=== PATIENT | male | born 1955 | race Caucasian/White ===

== ENCOUNTER 2016-08-10 18:33 | Inpatient (IN) | payer BC ==
[2016-08-10] MEDS ORDERED: NITROGLYCERIN SL TABS 0.4 MG TAB SUBLINGUAL STA (19:07)
--- NOTE | 2016-08-10 19:09 | ED ---
General Adult HPI - General Chief complaint: Chest Pain Stated complaint: Chest pain Time Seen by Provider: 08/10/16 19:00 Source: patient Mode of arrival: wheelchair Limitations: no limitations - History of Present Illness Initial comments: 60-year-old male onset of chest heaviness like knot in his chest beginning at 2 PM no similar episodes in the past had some nausea sweats refer started was more severe and went down both arms. No history of hypertension diabetes seizures asthma. To call for an aspirin at home today. Father had heart disease in his 70s. Both uncles have heart disease. He's had no blood in the stool black stools no abdominal pain no pain with eating - Related Data Home Medications Medication Instructions Recorded Confirmed Aspirin 325 mg PO Q6H PRN 08/10/16 08/10/16 Cyclobenzaprine [Flexeril] 10 mg PO HS 08/10/16 08/10/16 Allergies Allergy/AdvReac Type Severity Reaction Status Date / Time No Known Allergies Allergy Verified 08/10/16 19:28 Review of Systems ROS Statement: Those systems with pertinent positive or pertinent negative responses have been documented in the HPI. ROS Other: All systems not noted in ROS Statement are negative. Constitutional: Denies: fever, chills Eyes: Denies: eye discharge Respiratory: Denies: cough, dyspnea Cardiovascular: Reports: chest pain Gastrointestinal: Denies: abdominal pain, nausea, vomiting, diarrhea Genitourinary: Denies: frequency Skin: Denies: rash Neurological: Denies: headache Psychiatric: Denies: anxiety, depression Hematological/Lymphatic: Denies: easy bleeding, easy bruising Past Medical History Past Medical History: Osteoarthritis (OA) History of Any Multi-Drug Resistant Organisms: None Reported Past Surgical History: Back Surgery, Orthopedic Surgery Past Psychological History: No Psychological Hx Reported Smoking Status: Former smoker Past Alcohol Use History: Occasional Past Drug Use History: None Reported General Exam Limitations: no limitations General appearance: alert, in no apparent distress Head exam: Present: atraumatic Eye exam: Present: normal appearance ENT exam: Present: normal oropharynx, mucous membranes moist, TM's normal bilaterally Respiratory exam: Present: normal lung sounds bilaterally Cardiovascular Exam: Present: regular rate, normal heart sounds GI/Abdominal exam: Present: soft. Absent: tenderness, guarding, rebound Neurological exam: Present: alert, CN II-XII intact Psychiatric exam: Present: normal affect, normal mood Skin exam: Present: warm, dry Course Vital Signs 08/10/16 08/10/16 08/10/16 18:41 19:21 20:38 Temperature 97.8 F Pulse Rate 108 H 108 H 90 Respiratory 20 16 18 Rate Blood Pressure 157/87 150/90 164/107 O2 Sat by Pulse 98 98 98 Oximetry 08/10/16 08/10/16 20:45 20:51 Temperature Pulse Rate 75 63 Respiratory 16 16 Rate Blood Pressure 145/98 163/94 O2 Sat by Pulse 96 96 Oximetry Medical Decision Making - Medical Decision Making A she was evaluated by , will undergo heart catheterization will go directly to the catheterization lab and then be admitted. - Lab Data Result diagrams: 08/10/16 19:15 08/10/16 19:15 Lab Results 08/10/16 08/10/16 08/10/16 Range/Units 19:15 19:15 19:15 WBC 10.7 H (3.8-10.6) k/uL RBC 5.45 (4.30-5.90) m/uL Hgb 16.1 (13.0-17.5) gm/dL Hct 50.0 (39.0-53.0) % MCV 91.9 (80.0-100.0) fL MCH 29.5 (25.0-35.0) pg MCHC 32.1 (31.0-37.0) g/dL RDW 13.1 (11.5-15.5) % Plt Count 305 (150-450) k/uL Neutrophils % 78 % Lymphocytes % 15 % Monocytes % 5 % Eosinophils % 1 % Basophils % 0 % Neutrophils # 8.4 H (1.3-7.7) k/uL Lymphocytes # 1.6 (1.0-4.8) k/uL Monocytes # 0.5 (0-1.0) k/uL Eosinophils # 0.1 (0-0.7) k/uL Basophils # 0.0 (0-0.2) k/uL PT (9.0-12.0) sec INR (<1.1) APTT (22.0-30.0) sec Sodium 143 (137-145) mmol/L Potassium 4.1 (3.5-5.1) mmol/L Chloride 106 (98-107) mmol/L Carbon Dioxide 25 (22-30) mmol/L Anion Gap 12 mmol/L BUN 22 H (9-20) mg/dL Creatinine 1.02 (0.66-1.25) mg/dL Est GFR (MDRD) Af Amer >60 (>60 ml/min/1.73 sqM) Est GFR (MDRD) Non-Af >60 (>60 ml/min/1.73 sqM) Glucose 112 H (74-99) mg/dL Calcium 10.0 (8.4-10.2) mg/dL Magnesium 2.1 (1.6-2.3) mg/dL Total Bilirubin 0.5 (0.2-1.3) mg/dL AST 53 (17-59) U/L ALT 30 (21-72) U/L Alkaline Phosphatase 100 (38-126) U/L Total Creatine Kinase 272 H (55-170) U/L CK-MB (CK-2) 26.6 H* (0.0-2.4) ng/mL CK-MB (CK-2) Rel Index 9.8 Troponin I 4.120 H* (0.000-0.034) ng/mL Total Protein 7.2 (6.3-8.2) g/dL Albumin 4.2 (3.5-5.0) g/dL 08/10/16 Range/Units 19:15 WBC (3.8-10.6) k/uL RBC (4.30-5.90) m/uL Hgb (13.0-17.5) gm/dL Hct (39.0-53.0) % MCV (80.0-100.0) fL MCH (25.0-35.0) pg MCHC (31.0-37.0) g/dL RDW (11.5-15.5) % Plt Count (150-450) k/uL Neutrophils % % Lymphocytes % % Monocytes % % Eosinophils % % Basophils % % Neutrophils # (1.3-7.7) k/uL Lymphocytes # (1.0-4.8) k/uL Monocytes # (0-1.0) k/uL Eosinophils # (0-0.7) k/uL Basophils # (0-0.2) k/uL PT 11.1 (9.0-12.0) sec INR 1.1 (<1.1) APTT 25.7 (22.0-30.0) sec Sodium (137-145) mmol/L Potassium (3.5-5.1) mmol/L Chloride (98-107) mmol/L Carbon Dioxide (22-30) mmol/L Anion Gap mmol/L BUN (9-20) mg/dL Creatinine (0.66-1.25) mg/dL Est GFR (MDRD) Af Amer (>60 ml/min/1.73 sqM) Est GFR (MDRD) Non-Af (>60 ml/min/1.73 sqM) Glucose (74-99) mg/dL Calcium (8.4-10.2) mg/dL Magnesium (1.6-2.3) mg/dL Total Bilirubin (0.2-1.3) mg/dL AST (17-59) U/L ALT (21-72) U/L Alkaline Phosphatase (38-126) U/L Total Creatine Kinase (55-170) U/L CK-MB (CK-2) (0.0-2.4) ng/mL CK-MB (CK-2) Rel Index Troponin I (0.000-0.034) ng/mL Total Protein (6.3-8.2) g/dL Albumin (3.5-5.0) g/dL - EKG Data -: EKG Interpreted by Me 08/10/16 19:09 ECG 08/10/2016 1856 ventricular rate 92 bpm, [place] interval 162 ms, QRS duration 84 ms, QT interval 332 ms normal sinus rhythm left axis deviation inferior posterior infarct age indeterminate Disposition Clinical Impression: Acute non-ST segment elevation myocardial infarction (STEMI) following previous myocardial infarction Disposition: ADMITTED IP TO THIS [facility] Time of Disposition: 20:57
[2016-08-10 19:32] LABS: Basophils % (A) 0 %; CHCM 33.8; Eosinophils # (A) 0.1 k/uL (0-0.7); Eosinophils % (A) 1 %; HDW 2.29; HGB 16.1 gm/dL (13.0-17.5); Luc # (Auto) 0.14; Luc % (Auto) 1; Lymphocytes # (A) 1.6 k/uL (1.0-4.8); Lymphocytes % (A) 15 %; MCH 29.5 pg (25.0-35.0); MCHC 32.1 g/dL (31.0-37.0); MCV 91.9 fL (80.0-100.0); Mean Platelet Volume 6.8; Monocytes # (A) 0.5 k/uL (0-1.0); Monocytes % (A) 5 %; Neutrophils # (A) 8.4 k/uL (1.3-7.7); Neutrophils % (A) 78 %; RBC 5.45 m/uL (4.30-5.90); RDW 13.1 % (11.5-15.5); WBC 10.7 k/uL (3.8-10.6); WBC (Perox) 10.87
[2016-08-10 19:34] LABS: INR 1.1 (<1.1); Partial Thromboplastin Time 25.7 sec (22.0-30.0); Prothrombin Time 11.1 sec (9.0-12.0)
[2016-08-10 19:35] LABS: ALT 30 U/L (21-72); AST 53 U/L (17-59); Alkaline Phosphatase 100 U/L (38-126); Anion Gap 12 mmol/L; Blood Urea Nitrogen 22 mg/dL (9-20); Carbon Dioxide 25 mmol/L (22-30); Chloride 106 mmol/L (98-107); Glucose 112 mg/dL (74-99); Magnesium 2.1 mg/dL (1.6-2.3); Non-African American GFR(MDRD) >60 (>60 ml/min/1.73 sqM); Potassium 4.1 mmol/L (3.5-5.1); Sodium 143 mmol/L (137-145); Total Bilirubin 0.5 mg/dL (0.2-1.3); Total Protein 7.2 g/dL (6.3-8.2)
[2016-08-10] MEDS ORDERED: NITROGLYCERIN OINT 1 INCH/GM PACKET TOPICAL STA (19:40)
--- NOTE | 2016-08-10 19:50 | XR ---
EXAMINATION TYPE: XR chest 1V portable DATE OF EXAM: 08/10/2016 7:31 PM COMPARISON: NONE HISTORY: Chest pain TECHNIQUE: Single frontal view of the chest is obtained. FINDINGS: There is a poor aspiration. There is linear density at the lung bases. There are no hilar masses. There are chest leads. There is no heart failure. IMPRESSION: Mild atelectasis at the lung bases. No heart failure. Heart size is probably normal.
[2016-08-10 20:01] LABS: Creatine Kinase MB 26.6 ng/mL (0.0-2.4); Troponin I 4.12 ng/mL (0.000-0.034)
[2016-08-10] MEDS ORDERED: HEPARIN SODIUM,PORCINE 5,000 UNIT/ML 1 ML VIAL IV PRN (20:08)
[2016-08-10] MEDS ORDERED: HEPARIN SODIUM,PORCINE 5,000 UNIT/ML 1 ML VIAL IV ONE (20:08)
[2016-08-10] MEDS ORDERED: ATORVASTATIN 80 MG TAB PO STA (20:09)
[2016-08-10] MEDS: HEPARIN SODIUM,PORCINE/D5W PMX 25,000 UNIT in DEXTROSE/WATER 1 500ML.BAG IV SCH (20:25)
[2016-08-10] MEDS: METOPROLOL TARTRATE 5 MG/5 ML VIAL IVP SCH ×4 (20:40→23:08)
[2016-08-10] MEDS ORDERED: NALOXONE 0.4 MG/ML 1 ML VIAL IV PRN (20:55)
[2016-08-10] MEDS ORDERED: SODIUM CHLORIDE 0.9% 1,000 ML IV ONE (20:59)
[2016-08-10] MEDS ORDERED: LIDOCAINE 2% INJ 20 MG/ML (20 ML MDV) ONE (21:08)
[2016-08-10] MEDS ORDERED: fentaNYL (PF) 50 MCG/ML 2 ML AMP ONE (21:10)
[2016-08-10] MEDS ORDERED: MIDAZOLAM 2 MG/2 ML VIAL ONE (21:10)
[2016-08-10] MEDS ORDERED: LIDOCAINE 2% INJ 20 MG/ML SQ ONE (21:13)
[2016-08-10] MEDS ORDERED: MIDAZOLAM 2 MG/2 ML VIAL IV ONE (21:16)
[2016-08-10] MEDS ORDERED: fentaNYL (PF) 50 MCG/ML 2 ML AMP IV ONE (21:16)
[2016-08-10] MEDS ORDERED: TICAGRELOR 90 MG TAB ONE (21:26)
[2016-08-10] MEDS ORDERED: BIVALIRUDIN BOLUS 250 MG/50 ML IV ONE (21:27)
[2016-08-10] MEDS ORDERED: TICAGRELOR 90 MG TAB PO ONE (21:28)
[2016-08-10] MEDS ORDERED: BIVALIRUDIN 250 MG in SODIUM CHLORIDE 0.9% 50 ML IV ONE (21:29)
[2016-08-10] MEDS ORDERED: NITROGLYCERIN 1000MCG/10ML SYRINGE INTRACORON ONE (21:37)
[2016-08-10] MEDS ORDERED: ZOLPIDEM 5 MG TAB PO PRN (21:53)
[2016-08-10] MEDS ORDERED: NITROGLYCERIN SL TABS 0.4 MG TAB SUBLINGUAL PRN (21:53)
[2016-08-10] MEDS ORDERED: ATROPINE SULFATE 0.1 MG/ML 10ML SYRINGE IV PRN (21:53)
[2016-08-10] MEDS ORDERED: RX INFO: IV CONTRAST WAS GIVEN 1 EACH MISC MISCELLANE PRN (21:53)
[2016-08-10] MEDS ORDERED: MAG HYDROX/AL HYDROX/SIMETH 30 ML CUP PO PRN (21:53)
--- NOTE | 2016-08-10 21:56 | CONS ---
Mr. Mathis is a 60-year-old gentleman who is seen in the emergency room because of the complaint of chest pain. This patient's history was obtained from the patient's R.N. notes are reviewed and emergency room chart reviewed. Patient started having chest discomfort around 2:00 this afternoon. Pain was in the substernal area. It went down both arms. There was some associated nausea and sweating. Patient came to the emergency room. EKG is suggestive of acute inferior wall myocardial infarction. Already Q waves are noted with mild ST segment elevation in the inferior leads. Patient denies any history of hypertension, diabetes. There is no previous history of angina. Home medications include aspirin. Past medical history includes back surgery as well as orthopedic surgery. SMOKING HISTORY: Patient is a former smoker. Review of systems is otherwise unremarkable. Physical examination at present reveals a 60-year-old gentleman who does not appear to be in any acute distress. He is having mild discomfort at present, blood pressure is 150/90 mmHg. Head/ENT is negative. Neck is supple. There is no increase in jugular venous pressure. Both the carotid pulses are felt. There is no bruit. Chest is symmetrical. HEART: PMI is not felt. First and second heart sounds are normal. There is no evidence of any murmur. Lungs are clinically clear to auscultation and percussion. Abdomen is soft. Liver and spleen are not enlarged. EXTREMITIES: Peripheral pulsations are 2+. EKG is suggestive of acute inferior wall myocardial infarction. Patient's CPK is 272. Troponin is 4.12. FINAL IMPRESSION: Acute anterior wall myocardial infarction. It is about 6 hours since onset of his chest pain. Patient is advised urgent cardiac catheterization and possible angioplasty.
[2016-08-10] MEDS ORDERED: SODIUM CHLORIDE 0.9% 1,000 ML IV SCH (22:00)
[2016-08-10 22:16] LABS: Glucose,Whole Blood 98 mg/dL (75-99)
[2016-08-10 22:35] LABS: Appearance,Urine Clear (Clear); Bilirubin,Urine Negative (Negative); Glucose,Urine (UA) Negative (Negative); Ketones,Urine Negative (Negative); Leukocyte Esterase,Urine Negative (Negative); Nitrite,Urine Negative (Negative); Protein,Urine Negative (Negative); Specific Gravity,Urine 1.015 (1.001-1.035); UA Billing (MACRO vs. MICRO) CHEM; Urobilinogen,Urine <2.0 mg/dL (<2.0)
[2016-08-10 23:29] VITALS: BMI 27.1
[2016-08-10] MEDS: SODIUM CHLORIDE 0.9% 1,000 ML IV SCH (23:39)
[2016-08-11 04:58] LABS: Basophils % (A) 0 %; CH 30.7; CHCM 33.4; Eosinophils # (A) 0.1 k/uL (0-0.7); Eosinophils % (A) 1 %; HDW 2.29; HGB 15.9 gm/dL (13.0-17.5); Luc % (Auto) 2; Lymphocytes # (A) 1.6 k/uL (1.0-4.8); Lymphocytes % (A) 15 %; MCH 30.5 pg (25.0-35.0); MCHC 33.1 g/dL (31.0-37.0); MCV 92.2 fL (80.0-100.0); Mean Platelet Volume 7.3; Monocytes # (A) 0.7 k/uL (0-1.0); Monocytes % (A) 6 %; Neutrophils # (A) 8.1 k/uL (1.3-7.7); Neutrophils % (A) 76 %; RBC 5.21 m/uL (4.30-5.90); RDW 13.2 % (11.5-15.5); WBC 10.7 k/uL (3.8-10.6); WBC (Perox) 10.46
[2016-08-11 05:17] LABS: Anion Gap 7 mmol/L; Blood Urea Nitrogen 17 mg/dL (9-20); Calcium 9.5 mg/dL (8.4-10.2); Carbon Dioxide 23 mmol/L (22-30); Chloride 108 mmol/L (98-107); Glucose 94 mg/dL (74-99); Magnesium 1.9 mg/dL (1.6-2.3); Non-African American GFR(MDRD) >60 (>60 ml/min/1.73 sqM); Phosphorous 3.7 mg/dL (2.5-4.5); Potassium 4.1 mmol/L (3.5-5.1); Sodium 138 mmol/L (137-145)
[2016-08-11] MEDS: ASPIRIN 325 MG TAB PO SCH (07:49)
[2016-08-11] MEDS: TICAGRELOR 90 MG TAB PO SCH ×2 (07:49→20:47)
[2016-08-11] MEDS: METOPROLOL TARTRATE 25 MG TAB PO SCH ×2 (07:49→20:47)
--- NOTE | 2016-08-11 08:13 | CC ---
DATE OF SERVICE: Mr. Mathis is a 60-year-old gentleman who started having pain about 2:00 this afternoon. EKG was suggestive of acute inferior wall myocardial infarction with mild ST segment elevation in the inferior leads. Patient had a positive CPK and troponin. In view of that, the patient was advised urgent cardiac catheterization. PROCEDURE: The right groin was prepped and draped in the usual manner and the skin was infiltrated with 2% Xylocaine. The right femoral artery was entered using Seldinger technique. A #6 Welsh sheath was placed in. Selective coronary angiography was then performed in multiple projections. The left ventricular pressures were obtained. Patient to the procedure well. HEMODYNAMICS: Left ventricular end-diastolic pressure was 12 mmHg prior to angiography. No gradient was noted across the aortic valve. SELECTIVE CORONARY ANGIOGRAPHY: Left main coronary artery is normal and patent. LAD is a good caliber blood vessel and gives rise to a good-sized diagonal branch. LAD and its branches are normal. Circumflex coronary artery is a good caliber blood vessel and gives rise to a large-sized second obtuse marginal branch. The second obtuse marginal branch has plaque rupture with evidence of thrombosis and about 50% stenosis. The right coronary artery is small and nondominant. FINAL IMPRESSION: 1. Left anterior descending is normal. 2. Second obtuse marginal branch, which is a large caliber blood vessel, has evidence of plaque rupture with 50% stenosis and evidence of thrombus. 3. Right coronary artery is small and nondominant. RECOMMENDATIONS: We will proceed with stent to the obtuse marginal branch.
--- NOTE | 2016-08-11 08:19 | PTCA ---
DATE OF SERVICE: 08/10/2016 PERFORMING PHYSICIAN: Judson Sharif M.D., exterior door installer. PROCEDURE PERFORMED: Successful stenting of the second obtuse marginal branch of the left circumflex using a 3.5 x 15 mm Xience MALIHA with a good angiographic results. INDICATION: This is a pleasant 60-year-old gentleman who presented to the hospital with chest discomfort and was found to have abnormal cardiac enzymes and was diagnosed as acute coronary syndrome. He underwent a heart catheterization by Dr. VC Mueller and was found to have a plaque rupture and thrombus formation involving the second obtuse marginal branch of the left circumflex, which was a dominant left circumflex. The decision was made toward percutaneous coronary intervention. APPROACH: Right common femoral artery. COMPLICATIONS: None. LEVEL OF SEDATION: Moderate. PROCEDURE DESCRIPTION: After diagnostic heart catheterization was performed by Dr. Juvenal Mueller and after reviewing the angiogram, we decided to pursue with an intervention on the left circumflex. Anticoagulation was initiated using Angiomax. Subsequently, I took JL4 guide and the left main was engaged. A whisper wire was used to wire the left circumflex and directing the wire into the second OM branch of the left circumflex. Subsequently, I did direct stenting of the lesion using 3.5 x 15 mm Xience MALIHA, where the stent was positioned under fluoroscopy guidance and then it was deployed under 10 atmospheres for 20 seconds. The following angiogram showed good angiographic result without perforation and without dissection. Distal to the stent there was some residual stenosis that appeared to be in the range of 20% to 30%. The procedure was completed without any complication. CONCLUSION: Successful stenting of the second obtuse marginal branch of the left circumflex using 3.5 x 15 mm Xience MALIHA with a good angiographic results. POSTPROCEDURE MANAGEMENT: 1. Dual antiplatelet therapy. 2. Risk factor modification. 3. Follow up with the patient.
--- NOTE | 2016-08-11 12:16 | P.PN ---
Subjective This patient came with acute inferior wall myocardial infarction. Patient underwent a stent to the large size obtuse marginal branch. He's feeling better denies any chest pain shortness of breath. There is no swelling in the right groin. Objective - Vital Signs Vital signs: Vital Signs Temp 98.3 F 08/11/16 08:00 Pulse 76 08/11/16 12:00 Resp 11 L 08/11/16 12:00 BP 123/76 08/11/16 12:00 Pulse Ox 95 08/11/16 12:00 Intake & Output 08/10/16 08/11/16 08/11/16 17:59 06:59 18:59 Intake Total 620 Output Total 800 Balance -180 Weight Intake: IV 620 Sodium Chloride 0.9% 1, 620 000 ml @ 100 mls/hr IV . Q10H WILLARD Rx#:[id number] Intake, IV Titration Amount Sodium Chloride 0.9% 1, 000 ml @ 100 mls/hr IV . Q10H WILLARD Rx#:[id number] Output: Urine 800 Other: Voiding Method Urinal # Bowel Movements - Exam Patient is comfortable and in no acute distress. Heart. First and second heart sounds are normal no murmurs are heard. Lungs. Clinically clear to auscultation and percussion Abdomen is soft. Right groin mild tenderness noted. - Labs CBC & Chem 7: 08/11/16 04:06 08/11/16 04:06 Labs: Abnormal Lab Results - Last 24 Hours (Table) 08/11/16 08/11/16 Range/Units 04:06 04:06 WBC 10.7 H (3.8-10.6) k/uL Neutrophils # 8.1 H (1.3-7.7) k/uL Chloride 108 H (98-107) mmol/L Assessment and Plan Plan: Patient is stable status post stent to the obtuse marginal branch. We will repeat the troponin today and continue the current medications.
--- NOTE | 2016-08-11 12:20 | P.PN ---
Subjective This patient was transferred from the [facility] with non-Q-wave myocardial infarction. Patient underwent cardiac catheterization. Since his abnormal origin of the LAD and circumflex coronary artery from right coronary cusp. Patient has a probably 50% stenosis in the obtuse marginal branch recent is going to need a CT angiogram as an outpatient. Patient had a possible thrombus in the left atrial appendage which is clear that the computed tomography scan. Patient has a evidence of atrial fibrillation with controlled rate. Denies any chest pain or shortness of breath. Objective - Vital Signs Vital signs: Vital Signs Temp 98.3 F 08/11/16 08:00 Pulse 76 08/11/16 12:00 Resp 11 L 08/11/16 12:00 BP 123/76 08/11/16 12:00 Pulse Ox 95 08/11/16 12:00 Intake & Output 08/10/16 08/11/16 08/11/16 17:59 06:59 18:59 Intake Total 620 Output Total 800 Balance -180 Weight Intake: IV 620 Sodium Chloride 0.9% 1, 620 000 ml @ 100 mls/hr IV . Q10H [facility]ARD Rx#:[id number] Intake, IV Titration Amount Sodium Chloride 0.9% 1, 000 ml @ 100 mls/hr IV . Q10H WILLARD Rx#:[id number] Output: Urine 800 Other: Voiding Method Urinal # Bowel Movements - Exam Patient is comfortable in no acute distress. Heart first and second heart sounds are normal. Lungs. Clear to auscultation and percussion. Right groin no hematoma. - Labs CBC & Chem 7: 08/11/16 04:06 08/11/16 04:06 Labs: Abnormal Lab Results - Last 24 Hours (Table) 08/11/16 08/11/16 Range/Units 04:06 04:06 WBC 10.7 H (3.8-10.6) k/uL Neutrophils # 8.1 H (1.3-7.7) k/uL Chloride 108 H (98-107) mmol/L Assessment and Plan Plan: I will increase the Cardizem to 60 mg 3 times a day to control the rate. We will continue the patient on Eliquis and Plavix.
[2016-08-11] MEDS ORDERED: ACETAMINOPHEN TAB 325 MG TAB PO PRN (18:51)
[2016-08-11] MEDS: HEPARIN SODIUM,PORCINE/D5W PMX 25,000 UNIT in DEXTROSE/WATER 1 500ML.BAG IV SCH (20:46)
[2016-08-11] MEDS: ATORVASTATIN 80 MG TAB PO SCH (20:46)
--- NOTE | 2016-08-11 21:30 | HP ---
DATE OF ADMISSION: 08/10/2016 CHIEF COMPLAINT: Chest pain. HISTORY OF PRESENT ILLNESS: This is the first admission for this 60-year-old white male. He was having dinner at [place] with his . He started home and had a severe substernal chest discomfort associated with some diaphoresis and shortness of breath. He continued to progress to home where he stayed for a while and then his pain grew worse. He decided to come the emergency room. He was found to have an acute ST segment elevation myocardial infarction where he went to the operating room where a stent was placed. He feels fine now. REVIEW OF SYSTEMS: He has had no neurologic problems, difficulty with vision or hearing, shortness of breath, lung disease, murmurs, rheumatic fever, abdominal pain, vomiting, diarrhea, melena, hematochezia, jaundice, hematuria, frequency, urgency, arthralgias, diabetes, etc. Past medical history, family history, and personal and social histories are all otherwise unremarkable and noncontributory. He takes Flexeril for his back pain. He is not allergic to any medication. He has had a procedure on his knee and an LS spine procedure in the past. He has a family history of heart disease. Father lived to be 92, but had an AR earlier. There are many uncles that have had MIs. He does not smoke. PHYSICAL EXAMINATION: VITAL SIGNS: Blood pressure 136/87 with a pulse of 73, respirations 19. He is afebrile. GENERAL: He appeared to be well-developed, well-nourished in no acute distress. SKIN: Skin color is normal. Skin is warm and dry. Lymph nodes are not enlarged. Head, ears, eyes, nose, mouth, and throat were normal. NECK: Neck veins not distended. Thyroid is not enlarged. Chest is clear. CARDIAC: Normal. ABDOMEN: Soft, nontender. EXTREMITIES: Normal. NEUROLOGIC: Intact. IMPRESSION: 1. Acute myocardial infarction. 2. Strong family history for heart disease. 3. Lumbar spine arthritis. PLAN: Follow with cardiology now that he has had his cath and stent. Risk factor modification, activity and exercise as well as diet changes were discussed.
--- NOTE | 2016-08-11 21:33 | PN ---
DATE OF SERVICE: 08/11/2016 CHIEF COMPLAINT: Status post myocardial infarction. HISTORY OF PRESENT ILLNESS: This gentleman is doing well and having no problems. He is having no chest pain or palpitations, shortness of breath, leg pain, etc. PHYSICAL EXAMINATION: CHEST: Clear. CARDIAC: Exam is normal. The abdomen is soft, nontender. EXTREMITIES: Normal. IMPRESSIONS: Status post myocardial infarction. PLAN: No change in program.
[2016-08-12] MEDS: SODIUM CHLORIDE 0.9% 1,000 ML IV SCH ×2 (00:07→22:09)
[2016-08-12 05:00] LABS: Basophils % (A) 0 %; CH 30.7; CHCM 33.3; Eosinophils # (A) 0.3 k/uL (0-0.7); Eosinophils % (A) 3 %; HDW 2.25; HGB 16.1 gm/dL (13.0-17.5); Luc # (Auto) 0.19; Luc % (Auto) 2; Lymphocytes # (A) 1.8 k/uL (1.0-4.8); Lymphocytes % (A) 20 %; MCH 30.4 pg (25.0-35.0); MCHC 32.8 g/dL (31.0-37.0); MCV 92.7 fL (80.0-100.0); Mean Platelet Volume 7.5; Monocytes # (A) 0.6 k/uL (0-1.0); Monocytes % (A) 6 %; Neutrophils # (A) 6.3 k/uL (1.3-7.7); Neutrophils % (A) 69 %; RBC 5.29 m/uL (4.30-5.90); RDW 13.1 % (11.5-15.5); WBC 9.2 k/uL (3.8-10.6); WBC (Perox) 9.18
[2016-08-12 05:35] LABS: ALT 43 U/L (21-72); AST 72 U/L (17-59); Alkaline Phosphatase 86 U/L (38-126); Anion Gap 8 mmol/L; Blood Urea Nitrogen 18 mg/dL (9-20); Calcium 9.4 mg/dL (8.4-10.2); Carbon Dioxide 24 mmol/L (22-30); Chloride 108 mmol/L (98-107); Glucose 99 mg/dL (74-99); Non-African American GFR(MDRD) >60 (>60 ml/min/1.73 sqM); Potassium 4.4 mmol/L (3.5-5.1); Sodium 140 mmol/L (137-145); Total Bilirubin 0.8 mg/dL (0.2-1.3); Total Protein 6.5 g/dL (6.3-8.2)
[2016-08-12] MEDS: ASPIRIN 325 MG TAB PO SCH (08:33)
[2016-08-12] MEDS: TICAGRELOR 90 MG TAB PO SCH ×2 (08:33→20:17)
[2016-08-12] MEDS: METOPROLOL TARTRATE 25 MG TAB PO SCH ×2 (08:33→20:17)
--- NOTE | 2016-08-12 10:24 | ECHOF ---
Referral Reason:stemi MEASUREMENTS -------- HEIGHT: 177.8 cm WEIGHT: 85.7 kg BP: 119/66 RVIDd: 2.6 cm (< 3.3) IVSd: 1.1 cm (0.6 - 1.1) LVIDd: 3.6 cm (3.9 - 5.3) LVPWd: 1.2 cm (0.6 - 1.1) IVSs: 1.6 cm LVIDs: 2.4 cm LVPWs: 1.8 cm LA Diam: 2.9 cm (2.7 - 3.8) LAESV Index (A-L): 11.93 ml/m Ao Diam: 3.4 cm (2.0 - 3.7) AV Cusp: 2.3 cm (1.5 - 2.6) MV EXCURSION: 13.341 mm (> 18.000) MV EF SLOPE: 60 mm/s (70 - 150) EPSS: 0.7 cm MV E Presley: 0.61 m/s MV DecT: 222 ms MV A Presley: 0.96 m/s MV E/A Ratio: 0.64 RAP: 5.00 mmHg RVSP: 22.55 mmHg FINDINGS -------- Sinus rhythm. This was a technically good study. The left ventricular size is normal. There is borderline concentric left ventricular hypertrophy. Overall left ventricular systolic function is low-normal with, an EF between 50 - 55 %. Apical lateral LV wall motion is hypokinetic. The right ventricle is normal in size. Normal LA size by volume 22+/-6 ml/m2. The right atrium is normal in size. The aortic valve is trileaflet and appears structurally normal. The mitral valve is normal. Trace tricuspid regurgitation present. Right ventricular systolic pressure is normal at < 35 mmHg. The pulmonic valve is normal. There is no pulmonic regurgitation present. The aortic root size is normal. Normal inferior vena cava with normal inspiratory collapse consistent with estimated right atrial pressure of 5 mmHg. There is no pericardial effusion. CONCLUSIONS -------- 1. Sinus rhythm. 2. The aortic valve is trileaflet and appears structurally normal. 3. The mitral valve is normal. 4. Trace tricuspid regurgitation present. 5. Right ventricular systolic pressure is normal at < 35 mmHg. 6. The pulmonic valve is normal. 7. The aortic root size is normal. 8. Normal inferior vena cava with normal inspiratory collapse consistent with estimated right atrial pressure of 5 mmHg. 9. There is no pericardial effusion. 10. This was a technically good study. 11. The left ventricular size is normal. 12. There is borderline concentric left ventricular hypertrophy. 13. Overall left ventricular systolic function is low-normal with, an EF between 50 - 55 %. 14. Apical lateral LV wall motion is hypokinetic. 15. The right ventricle is normal in size. 16. Normal LA size by volume 22+/-6 ml/m2. 17. The right atrium is normal in size. AMERICAN SIGN LANGUAGE TEACHER: Zuleika Yeboah RDCS
--- NOTE | 2016-08-12 12:27 | P.PN ---
Subjective Sent is status post inferior posterior wall myocardial infarction. Patient isn' t doing fairly well. Patient denies any chest pain or shortness of breath. Objective - Vital Signs Vital signs: Vital Signs Temp 98.3 F 08/12/16 09:00 Pulse 78 08/12/16 09:00 Resp 18 08/12/16 09:00 BP 113/69 08/12/16 09:00 Pulse Ox 96 08/12/16 04:08 Intake & Output 08/11/16 08/12/16 08/12/16 18:59 06:59 18:59 Intake Total 620 0 Output Total 800 Balance -180 0 Weight 84 kg 84 kg Intake: IV 620 Sodium Chloride 0.9% 1, 620 000 ml @ 100 mls/hr IV . Q10H WILLARD Rx#:[id number] Oral 0 Output: Urine 800 Other: Voiding Method Urinal Urinal Urinal # Voids 1 1 # Bowel Movements 0 0 - Exam Vital signs are reviewed. Heart first and second heart sounds are normal. Lungs. Clear to auscultation and percussion. Monitor strip does not show any arrhythmia. - Labs CBC & Chem 7: 08/12/16 04:24 08/12/16 04:24 Labs: Abnormal Lab Results - Last 24 Hours (Table) 08/11/16 08/12/16 Range/Units 11:49 04:24 Chloride 108 H (98-107) mmol/L AST 72 H (17-59) U/L Troponin I 18.300 H* (0.000-0.034) ng/mL Assessment and Plan Plan: Patient is stable post myocardial infarction and stent placement. Patient would be ambulated and will be discharged home tomorrow.
--- NOTE | 2016-08-12 14:04 | PN ---
CHIEF COMPLAINT: Acute CA. HISTORY OF PRESENT ILLNESS: This gentleman is doing well and has had no pain, shortness of breath, arrhythmias, etc. PHYSICAL EXAMINATION: Chest is clear and cardiac exam is normal. The abdomen is soft, nontender. Extremities are normal. IMPRESSION: Acute myocardial infarction. PLAN: 1. Progress activity. 2. Move to a regular floor. 3. He can probably go home soon.
[2016-08-12] MEDS: ATORVASTATIN 80 MG TAB PO SCH (20:17)
[2016-08-12] MEDS: HEPARIN SODIUM,PORCINE/D5W PMX 25,000 UNIT in DEXTROSE/WATER 1 500ML.BAG IV SCH (20:19)
[2016-08-13 04:57] LABS: Basophils % (A) 0 %; CH 30.8; CHCM 33.1; Eosinophils # (A) 0.3 k/uL (0-0.7); Eosinophils % (A) 3 %; HCT 49.9 % (39.0-53.0); HDW 2.19; HGB 16.3 gm/dL (13.0-17.5); Luc # (Auto) 0.18; Luc % (Auto) 2; Lymphocytes # (A) 1.5 k/uL (1.0-4.8); Lymphocytes % (A) 18 %; MCH 30.5 pg (25.0-35.0); MCHC 32.6 g/dL (31.0-37.0); MCV 93.5 fL (80.0-100.0); Mean Platelet Volume 6.7; Monocytes # (A) 0.7 k/uL (0-1.0); Monocytes % (A) 8 %; Neutrophils % (A) 69 %; RBC 5.33 m/uL (4.30-5.90); RDW 13.3 % (11.5-15.5); WBC 8.8 k/uL (3.8-10.6)
[2016-08-13 05:18] LABS: Anion Gap 12 mmol/L; Blood Urea Nitrogen 19 mg/dL (9-20); Calcium 9.3 mg/dL (8.4-10.2); Carbon Dioxide 23 mmol/L (22-30); Chloride 104 mmol/L (98-107); Glucose 98 mg/dL (74-99); Non-African American GFR(MDRD) >60 (>60 ml/min/1.73 sqM); Potassium 4.4 mmol/L (3.5-5.1); Sodium 139 mmol/L (137-145)
[2016-08-13] MEDS: TICAGRELOR 90 MG TAB PO SCH (08:20)
[2016-08-13] MEDS: METOPROLOL TARTRATE 25 MG TAB PO SCH (08:20)
[2016-08-13 08:29] VITALS: PULSE 90; RESP 12
[2016-08-13] MEDS ORDERED: ASPIRIN 81 MG CHEW PO SCH (09:00)
--- NOTE | 2016-08-13 11:37 | P.PN ---
Subjective this patient is status post acute inferior posterior wall myocardial infarction. Patient is feeling well denies any chest pain or shortness of breath. Patient is educated regarding the medications and he will be discharged home today. Objective - Vital Signs Vital signs: Vital Signs Temp 97.9 F 08/13/16 08:00 Pulse 90 08/13/16 08:00 Resp 12 08/13/16 08:00 BP 128/78 08/13/16 08:00 Pulse Ox 94 L 08/13/16 08:00 Intake & Output 08/12/16 08/13/16 08/13/16 18:59 06:59 18:59 Intake Total 360 240 Output Total 400 400 Balance -40 -160 Weight 84 kg 81.8 kg Intake: Oral 360 240 Output: Urine 400 400 Other: Voiding Method Urinal Urinal Toilet # Voids 1 3 # Bowel Movements 0 0 - Exam vital signs are reviewed. Heart first and second heart sounds are normal. Lungs clinically clear to auscultation and percussion. - Labs CBC & Chem 7: 08/13/16 04:09 08/13/16 04:09 Assessment and Plan Plan: patient is stable and can be discharged home.
--- NOTE | 2016-08-13 11:43 | P.DS ---
Providers Date of admission: 08/10/16 20:52 Expected date of discharge: 08/13/16 Attending physician: Shay Lezama Consults: 08/10/16 21:53 Consult Physician Routine Consulting Provider: [facility] Consult Reason/Comments: Post Interventional patient Do you want consulting provider notified?: Already Contacted Primary care physician: Dionisio [place] Hospital Course: 59-year-old who presented on the day of admission to the emergency room with a chief complaint of chest heaviness felt like a non-ST chest occurred around 2 in the afternoon there've been no similar episodes. Patient did state he felt nauseated broke out in a sweat. Patient came into the emergency room to be evaluated for the above-mentioned symptoms patient was seen by cardiology service. 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 Patient underwent a successful stenting of the second obtuse branch of the left circumflex using a drug-eluting stent done on the 10 of August patient was started on dual antiplatelet therapy with risk factor modification. Patient had no further episodes of chest discomfort was felt to be clinically stable and appropriate proceed with a discharge on the discharge date Impression discharge diagnosis Present on admission chest pain suspect due to posterior inferior wall myocardial infarction Status post successful stenting of the second obtuse branch of the left circumflex using a drug-eluting stent Present on admission chest pain elevated troponin EKG suggestive of an acute inferior wall myocardial infarction with ST segment elevation in the inferior leads Family history of heart disease Essential hypertension The above dictated assessment and findings were discussed with dr lezama . Impression and the plan of care have been dictated as directed. Deborha Mobley nurse practitioner acting as a scribe for dr lezama Plan - Discharge Summary New Discharge Prescriptions: Aspirin 81 mg PO DAILY #30 chew Atorvastatin [Lipitor] 80 mg PO HS #30 tab Metoprolol Tartrate [Lopressor] 25 mg PO BID #60 tab Nitroglycerin Sl Tabs [Nitrostat] 0.4 mg SUBLINGUAL Q5M PRN #25 tab PRN Reason: Chest Pain Ticagrelor [Brilinta] 90 mg PO BID #60 tab Discharge Medication List Cyclobenzaprine [Flexeril] 10 mg PO HS 08/10/16 [History] Aspirin 81 mg PO DAILY #30 chew 08/13/16 [Rx] Atorvastatin [Lipitor] 80 mg PO HS #30 tab 08/13/16 [Rx] Metoprolol Tartrate [Lopressor] 25 mg PO BID #60 tab 08/13/16 [Rx] Nitroglycerin Sl Tabs [Nitrostat] 0.4 mg SUBLINGUAL Q5M PRN #25 tab 08/13/16 [Rx ] Ticagrelor [Brilinta] 90 mg PO BID #60 tab 08/13/16 [Rx] Follow up Appointment(s)/Referral(s): Dionisio Trejo DO [Primary Care Provider] - 1 Week Annabelle Mueller MD [STAFF PHYSICIAN] - 1 Week Discharge Disposition: HOME SELF-CARE
[2016-08-13] MEDS: HEPARIN SODIUM,PORCINE/D5W PMX 25,000 UNIT in DEXTROSE/WATER 1 500ML.BAG IV SCH (12:38)
[2016-08-13 13:56] VITALS: BP 108/72
[2016-08-13 13:59] VITALS: TEMP 98.7
--- NOTE | 2016-08-13 21:33 | PN ---
DATE OF SERVICE: 08/13/2016 CHIEF COMPLAINT: Chest pain. HISTORY OF PRESENT ILLNESS: This gentleman is doing well. He has had no problems. He has had no arrhythmias or shortness of breath. PHYSICAL EXAMINATION: CHEST: Clear. CARDIAC: Normal. ABDOMEN: Soft, nontender. IMPRESSION: Status post acute myocardial infarction. PLAN: Probably home today. This will be arranged by the nurse practitioner.
== END 2016-08-13 14:40 | disposition home or self-care (01) | DRG 247 ==
LOC: EC 18:33 → 6ICU 20:52
PROVIDERS: ADMIT Family Medicine; ATTEND Family Medicine
PROC: 4A023N7 Measurement of Cardiac Sampling and Pressure, Left Heart, Percutaneous Approach (ICD-10-PCS; principal; 2016-08-10 20:56)
PROC: B2111ZZ Fluoroscopy of Multiple Coronary Arteries using Low Osmolar Contrast (ICD-10-PCS; principal; 2016-08-10 20:56)
PROC: B2151ZZ Fluoroscopy of Left Heart using Low Osmolar Contrast (ICD-10-PCS; principal; 2016-08-10 20:56)
PROC: 027034Z Dilation of Coronary Artery, One Artery with Drug-eluting Intraluminal Device, Percutaneous Approach (ICD-10-PCS; 2016-08-10 20:56)
DX: I21.19 ST elevation (STEMI) myocardial infarction involving other coronary artery of inferior wall (principal); I10 Essential (primary) hypertension; I48.91 Unspecified atrial fibrillation; M46.96 Unspecified inflammatory spondylopathy, lumbar region; Z79.82 Long term (current) use of aspirin; Z82.49 Family history of ischemic heart disease and other diseases of the circulatory system; Z87.891 Personal history of nicotine dependence
CPT/HCPCS: 36415; 71010; 80048; 80053; 81003; 82550; 82553; 83735; 84100; 84484; 85025; 85610; 85730; 93005; 93306; 96365; 96376; 99285

== ENCOUNTER → 2016-10-19 | Outpatient (CLI) | payer BC ==
[2016-10-23 12:18] LABS: LDL Size 19.9 nm (>20.5); LDL Size 2 19.9 nm (>=20.8)
== END | disposition home or self-care (01) ==
LOC: LABWHC1 10:01
PROVIDERS: ATTEND Internal Medicine Cardiovascular Disease
DX: I25.10 Atherosclerotic heart disease of native coronary artery without angina pectoris (principal)
CPT/HCPCS: 36415; 83704

== ENCOUNTER → 2017-01-25 | Outpatient (CLI) | payer BC ==
[2017-01-29 19:06] LABS: Large VLDL Particle Number,NMR 7.1 nmol/L (<=2.7)
== END | disposition home or self-care (01) ==
LOC: LABWHC1 09:06
PROVIDERS: ATTEND Internal Medicine Cardiovascular Disease
DX: I25.10 Atherosclerotic heart disease of native coronary artery without angina pectoris (principal)
CPT/HCPCS: 36415; 83704

== ENCOUNTER → 2017-05-31 | Outpatient (CLI) | payer BC | END | disposition home or self-care (01) | LOC: LABWHC1 09:32 | PROVIDERS: ATTEND Internal Medicine Cardiovascular Disease | DX: I25.10 Atherosclerotic heart disease of native coronary artery without angina pectoris (principal) | CPT/HCPCS: 36415; 83704 ==

== ENCOUNTER → 2018-02-21 | Outpatient (CLI) | payer BC | END | disposition home or self-care (01) | LOC: LABWHC1 10:13 | PROVIDERS: ATTEND Internal Medicine Cardiovascular Disease | DX: I25.10 Atherosclerotic heart disease of native coronary artery without angina pectoris (principal) | CPT/HCPCS: 36415; 83704 ==

== ENCOUNTER → 2018-02-28 | Outpatient (CLI) | payer BC ==
[2018-03-03 21:09] LABS: Large VLDL Particle Number,NMR <1.5 nmol/L (<=2.7)
== END | disposition home or self-care (01) ==
LOC: LABWHC1 09:11
PROVIDERS: ATTEND Internal Medicine Cardiovascular Disease
DX: I25.10 Atherosclerotic heart disease of native coronary artery without angina pectoris (principal)
CPT/HCPCS: 36415; 83704

== ENCOUNTER → 2018-05-18 | Outpatient (CLI) | payer BC ==
[2018-05-18 20:03] LABS: HCT 49.5 % (39.0-53.0); HGB 15.7 gm/dL (13.0-17.5); MCH 31.2 pg (25.0-35.0); MCHC 31.8 g/dL (31.0-37.0); MCV 98.3 fL (80.0-100.0); Mean Platelet Volume 6.9; Platelet Count 260 k/uL (150-450); RBC 5.03 m/uL (4.30-5.90); RDW 12.4 % (11.5-15.5); WBC 9.7 k/uL (3.8-10.6)
[2018-05-19 03:32] LABS: Anion Gap 11.8 mmol/L (4.00-12.00); Carbon Dioxide 24.2 mmol/L (21.6-31.8); Magnesium 2.2 mg/dL (1.5-2.4); Potassium 4.3 mmol/L (3.5-5.5)
== END | disposition home or self-care (01) ==
LOC: LABMAIN 17:58
PROVIDERS: ATTEND Internal Medicine Cardiovascular Disease
DX: Z01.812 Encounter for preprocedural laboratory examination (principal); E78.2 Mixed hyperlipidemia; I25.2 Old myocardial infarction
CPT/HCPCS: 36415; 80051; 82565; 82947; 83735; 84520; 85027

== ENCOUNTER 2018-05-29 09:47 | Day surgery (SDC) | payer BC ==
[2018-05-22 11:11] VITALS: BMI 28.7
[~2018-05-29 09:47] MED LIST: ALPRAZolam 0.25 MG TAB PO PRN; ASPIRIN 325 MG TAB PO ONE; SODIUM CHLORIDE 0.9% 1,000 ML in EMPTY BAG 1 BAG IV ONE
[2018-05-29] MEDS ORDERED: fentaNYL (PF) 50 MCG/ML 2 ML AMP ONE (12:26)
[2018-05-29] MEDS ORDERED: fentaNYL (PF) 50 MCG/ML 2 ML AMP IV ONE (12:34)
[2018-05-29] MEDS ORDERED: LIDOCAINE 1% (PF) 10MG/ML VIAL SQ ONE (12:35)
[2018-05-29] MEDS ORDERED: IOPAMIDOL-370 125ML BTL INJ ONE (12:51)
[2018-05-29] MEDS ORDERED: RX INFO: IV CONTRAST WAS GIVEN 1 EACH MISC MISCELLANE PRN (13:00)
[2018-05-29] MEDS ORDERED: SODIUM CHLORIDE 0.9% 1,000 ML IV SCH (13:00)
[2018-05-29] MEDS ORDERED: HYDROcodone/APAP 5-325MG 1 EACH TAB PO PRN (13:00)
[2018-05-29 13:38] VITALS: RESP 16; TEMP 97.7
--- NOTE | 2018-05-29 13:54 | CC ---
CARDIAC CATHETERIZATION REPORT This patient was recently seen in the office with a complaint of intermittent chest discomfort. The stress test showed evidence of inferior wall ischemia. In view of that, the patient was recommended to have a cardiac catheterization for definitive diagnosis. PROCEDURE: The right groin was prepped and draped in the usual manner and the skin was infiltrated with 2% Xylocaine. The right femoral artery was entered using Seldinger technique and #6-[place] sheath was placed in. Selective coronary angiography was then performed in multiple projections and the left ventricular pressures were obtained. Total sedation time was 16 minutes. Sheath was removed and good hemostasis was achieved with the use of manual compression. HEMODYNAMICS: Left ventricular end-diastolic pressure is 14 to 16 mmHg prior to angiography. No gradient is noted across the aortic valve. SELECTIVE CORONARY ANGIOGRAPHY: Left main coronary artery is short and patent. LAD is a good caliber blood vessel and gives rise to a small size diagonal branch. LAD and its branches are normal. Circumflex coronary artery is a normal caliber blood vessel. It is dominant in distribution gives rise to a good size obtuse marginal branch and then it continues as a PLV branch and gives rise to small size PDA branch. The circumflex coronary artery is a patent at the site of prior stent placement. The right coronary artery is small and nondominant. FINAL IMPRESSION: This study reveals a patent stent in the circumflex coronary artery. The left anterior descending artery is normal. Right coronary artery is small and nondominant. RECOMMENDATION: Continue medical treatment. MMODL / IJN: [id number] /
[2018-05-29 16:30] VITALS: BP 111/64; PULSE 74
== END 2018-05-29 20:00 | disposition home or self-care (01) ==
LOC: CATHCVL 09:47 → 1SOBS 13:09 → CATHCVL 20:00
PROVIDERS: ATTEND Internal Medicine Cardiovascular Disease
DX: I25.10 Atherosclerotic heart disease of native coronary artery without angina pectoris (principal); R94.39 Abnormal result of other cardiovascular function study; Z95.5 Presence of coronary angioplasty implant and graft; E78.2 Mixed hyperlipidemia; I25.2 Old myocardial infarction; Z79.82 Long term (current) use of aspirin; Z79.899 Other long term (current) drug therapy
CPT/HCPCS: 93458; C1894; C1769 ×2; J3010; J2001; Q9967

== ENCOUNTER 2018-10-17 09:53 | Emergency (ER) | payer BC ==
[2018-10-17 09:58] VITALS: RESP 18
[2018-10-17] MEDS ORDERED: MORPHINE SULFATE 4 MG/ML SYRINGE IM STA (10:13)
--- NOTE | 2018-10-17 10:36 | XR ---
EXAMINATION TYPE: XR hand complete LT , 3 VIEWS DATE OF EXAM ORDERED: 10/17/2018 HISTORY: Pain. COMPARISON: None. FINDINGS: No fracture, dislocation or other acute osseous lesion is seen. IMPRESSION: NO ACUTE OSSEOUS LESION.
--- NOTE | 2018-10-17 10:37 | XR ---
EXAMINATION TYPE: XR forearm LT , 2 VIEWS DATE OF EXAM ORDERED: 10/17/2018 HISTORY: Pain. COMPARISON: None. FINDINGS: No fracture, dislocation or other acute osseous lesion is seen. IMPRESSION: NO ACUTE OSSEOUS LESION.
[2018-10-17] MEDS ORDERED: DIPH,PERTUS(ACELL)TETVAC-LF 0.5 ML VIAL IM ONE (11:56)
--- NOTE | 2018-10-17 11:58 | ED ---
General Adult HPI - General Chief complaint: Wound/Laceration Stated complaint: Hand Lac Time Seen by Provider: 10/17/18 10:01 Source: patient, RN notes reviewed Mode of arrival: ambulatory Limitations: no limitations - History of Present Illness Initial comments: 62-year-old male presents to the emergency department for a chief complaint of left wrist pain. Patient was using a metal elmira when he got his hand stuck. Patient states it twisted his hand and wrist. States he has pain with any from his hand up to his elbow. States it is painful to move his left wrist. States he has small abrasions. Tetanus is up-to-date. Denies any other injuries. Denies any loss of sensation in the left upper extremity.Patient has no other complaints at this time including shortness of breath, chest pain, abdominal pain, nausea or vomiting, headache, or visual changes. - Related Data Home Medications Medication Instructions Recorded Confirmed Cyclobenzaprine [Flexeril] 10 mg PO HS 08/10/16 10/17/18 Ezetimibe [Zetia] 10 mg PO HS 05/22/18 10/17/18 Previous Rx's Medication Instructions Recorded Aspirin 81 mg PO DAILY #30 chew 08/13/16 Atorvastatin [Lipitor] 80 mg PO HS #30 tab 08/13/16 Metoprolol Tartrate [Lopressor] 25 mg PO BID #60 tab 08/13/16 Nitroglycerin Sl Tabs [Nitrostat] 0.4 mg SUBLINGUAL Q5M PRN #25 tab 08/13/16 Ibuprofen [Motrin] 600 mg PO Q8HR PRN #20 tab 10/17/18 Allergies Allergy/AdvReac Type Severity Reaction Status Date / Time EKG PATCHES Allergy BLISTERS Uncoded 10/17/18 09:59 Review of Systems ROS Statement: Those systems with pertinent positive or pertinent negative responses have been documented in the HPI. ROS Other: All systems not noted in ROS Statement are negative. Past Medical History Past Medical History: Myocardial Infarction (PA), Osteoarthritis (OA) History of Any Multi-Drug Resistant Organisms: None Reported Past Surgical History: Back Surgery, Orthopedic Surgery Past Anesthesia/Blood Transfusion Reactions: No Reported Reaction Past Psychological History: No Psychological Hx Reported Smoking Status: Former smoker Past Alcohol Use History: Occasional Past Drug Use History: None Reported General Exam Limitations: no limitations General appearance: alert, in no apparent distress Head exam: Present: atraumatic, normocephalic, normal inspection Eye exam: Present: normal appearance, PERRL, EOMI. Absent: scleral icterus, conjunctival injection, periorbital swelling ENT exam: Present: normal exam, mucous membranes moist Neck exam: Present: normal inspection. Absent: tenderness, meningismus, lymphadenopathy Respiratory exam: Present: normal lung sounds bilaterally. Absent: respiratory distress, wheezes, rales, rhonchi, stridor Cardiovascular Exam: Present: regular rate, normal rhythm, normal heart sounds. Absent: systolic murmur, diastolic murmur, rubs, gallop, clicks Extremities exam: Present: tenderness (Generalized tenderness noted over the left wrist), normal capillary refill (cap refill less than 2 seconds, radial pulse 2+ and left upper extremity), joint swelling (Patient does have moderate edema noted to the left wrist specifically on the ulnar aspect.), other (The patient intact in the left upper extremity. Patient does have multiple abrasions noted over the dorsal hand however no lacerations. All abrasions are superficial.). Absent: normal inspection, full ROM (Patient has limited range of motion of the left wrist but is able to extend 10 and flex 10) Neurological exam: Present: alert, oriented X3, CN II-XII intact Psychiatric exam: Present: normal affect, normal mood Course Vital Signs 10/17/18 09:54 Temperature 97.9 F Pulse Rate 71 Respiratory 18 Rate Blood Pressure 103/61 O2 Sat by Pulse 98 Oximetry Procedures - Orthopedic Splinting/Casting Injury #1 Side: left Upper Extremity Injury Location: short arm, wrist Upper Extremity Immobilizer: volar splint Additional Comments: Neurovascular status intact after splint applied Medical Decision Making - Medical Decision Making 52-year-old male presents to the emergency department for a chief complaint of left arm pain after having his hand stuck in a metal elmira. Patient has pain from the wrist and hand up to the distal forearm. Patient does have some limited range of motion however neurovascular status is intact. There is some edema noted to the left wrist as well. Patient has small abrasions noted over the left hand. No lacerations. These were cleaned thoroughly and bandaged. Hand and forearm x-ray show no fracture dislocation or other acute osseous lesions. Volar wrist splint was applied as patient does have significant pain with range of motion and has edema noted. Patient will follow-up with orthopedics or return here if he has any worsening symptoms. Disposition Clinical Impression: Left wrist injury Disposition: HOME SELF-CARE Condition: Good Instructions (If sedation given, give patient instructions): Wrist Injury (ED), R.I.C.E. Treatment (ED) Additional Instructions: Please take Motrin for pain. He may take Tylenol as well. Rest ice and elevate the left wrist. Follow-up with orthopedics on Friday. Return here to the emergency department if you have any worsening symptoms. Prescriptions: Ibuprofen [Motrin] 600 mg PO Q8HR PRN #20 tab PRN Reason: Pain Is patient prescribed a controlled substance at d/c from ED?: No Referrals: Dionisio Trejo DO [Primary Care Provider] - 1-2 days Nelson Gomez DO [Doctor of Osteopathic Medicine] - 1-2 days Sonny Tipton MD [STAFF PHYSICIAN] - 1-2 days Time of Disposition: 11:54
[2018-10-17 12:28] VITALS: BP 109/75; PULSE 70; TEMP 98.4
== END 2018-10-17 12:15 | disposition home or self-care (01) ==
LOC: EC 09:53
DX: S60.512A Abrasion of left hand, initial encounter (principal); R60.0 Localized edema; Z87.891 Personal history of nicotine dependence; Z91.048 Other nonmedicinal substance allergy status; Z79.899 Other long term (current) drug therapy; Z23 Encounter for immunization; W31.1XXA Contact with metalworking machines, initial encounter; Y93.89 Activity, other specified; Y92.009 Unspecified place in unspecified non-institutional (private) residence as the place of occurrence of the external cause
CPT/HCPCS: 73090; 73130; 90715; 99283; 29125; 90471; 96372; J2270

== ENCOUNTER → 2018-11-02 | Outpatient (CLI) | payer BC ==
--- NOTE | 2018-11-02 16:47 | XR ---
EXAMINATION TYPE: XR wrist limited LT DATE OF EXAM: 11/02/2018 COMPARISON: NONE HISTORY: Wrist injury TECHNIQUE: 2 views FINDINGS: There is nondisplaced chip fracture ulnar styloid process. Carpal bones are intact. Distal radius is intact. Metacarpals appear intact. IMPRESSION: Nondisplaced ulnar styloid process fracture without change in position compared to 019 hand x-ray. No acute fracture.
== END | disposition home or self-care (01) ==
LOC: RADXRMAIN 15:49
PROVIDERS: ATTEND Orthopaedic Surgery
DX: S52.615A Nondisplaced fracture of left ulna styloid process, initial encounter for closed fracture (principal)

== ENCOUNTER → 2021-08-04 | Outpatient (CLI) | payer BC ==
[2021-08-04 16:48] LABS: Basophils # (A) 0.03 X 10*3/uL (0.00-0.10); Basophils % (A) 0.3 %; Eosinophils # (A) 0.11 X 10*3/uL (0.04-0.35); Eosinophils % (A) 1.2 %; HCT 48.6 % (39.6-50.0); HGB 15.1 g/dL (13.0-17.0); Immature Grans, Automated 0.3 %; Lymphocytes # (A) 1.72 X 10*3/uL (0.90-5.00); Lymphocytes % (A) 18.8 %; MCH 31.5 pg (27.0-32.0); MCHC 31.1 g/dL (32.0-37.0); MCV 101.3 fL (80.0-97.0); Mean Platelet Volume 10.1 fL (9.5-12.2); Monocytes # (A) 0.68 X 10*3/uL (0.20-1.00); Monocytes % (A) 7.4 %; NRBC Per 100 WBC 0 /100 WBCS (0.0-0.0); Neutrophils # (A) 6.58 X 10*3/uL (1.80-7.70); Platelet Count 261 X 10*3/uL (140-440); RDW 11.9 % (11.5-14.5); WBC 9.15 X 10*3/uL (4.50-10.00)
[2021-08-04 17:41] LABS: African American GFR (CKD) 80.6 (60.0-200.0); Albumin 4.7 g/dL (3.8-4.9); BUN/Creat Ratio 13.82 Ratio (12.00-20.00); Blood Urea Nitrogen 15.2 mg/dL (9.0-27.0); Calcium 9.8 mg/dL (8.7-10.3); Carbon Dioxide 24.7 mmol/L (20.0-27.5); Chloride 104 mmol/L (96-109); Chol/HDL Ratio 2.51 Ratio; Glucose 100 mg/dL (70-110); LDL Cholesterol,Calculated 49.6 mg/dL (0.0-131.0); Non-African American GFR(CKD) 69.6 (60.0-200.0); Phosphorus 3.7 mg/dL (2.4-5.1); Potassium 5.1 mmol/L (3.5-5.5); Sodium 142 mmol/L (135-145); VLDL Calculation 19.48 mg/dL (5.00-40.00)
== END | disposition home or self-care (01) ==
LOC: LABWHC1 10:34
PROVIDERS: ATTEND Internal Medicine
DX: I25.10 Atherosclerotic heart disease of native coronary artery without angina pectoris (principal); R53.83 Other fatigue; R06.02 Shortness of breath; I21.9 Acute myocardial infarction, unspecified
CPT/HCPCS: 36415; 80061; 80069; 84443; 85025

== ENCOUNTER → 2022-09-02 | Outpatient (CLI) | payer BC ==
[2022-09-03 06:11] LABS: Chol/HDL Ratio 2.31 Ratio; LDL Cholesterol,Calculated 53.7 mg/dL (0.0-131.0); VLDL Calculation 12.14 mg/dL (5.00-40.00)
== END | disposition home or self-care (01) ==
LOC: LABWHC1 15:19
PROVIDERS: ATTEND Internal Medicine
DX: I25.10 Atherosclerotic heart disease of native coronary artery without angina pectoris (principal); E78.5 Hyperlipidemia, unspecified
CPT/HCPCS: 36415; 80061

== ENCOUNTER 2023-04-22 10:50 | Day surgery (SDC) | payer BC ==
[~2023-04-22 10:50] MED LIST changes: -ALPRAZolam 0.25 MG TAB PO PRN; -ASPIRIN 325 MG TAB PO ONE; +LACTATED RINGERS 1,000 ML IV SCH; +PROPOFOL 10 MG/ML 20 ML VIAL IV ONE; -SODIUM CHLORIDE 0.9% 1,000 ML in EMPTY BAG 1 BAG IV ONE
[2023-04-22 11:24] VITALS: RESP 16; TEMP 97.3
--- NOTE | 2023-04-22 11:52 | P.GSHP ---
History of Present Illness H&P Date: 04/22/23 Chief Complaint: Rectal bleeding 67-year-old male here for colonoscopy. Patient with frequent rectal bleeding. Patient has a hemorrhoid on the right-hand side. Past Medical History Past Medical History: Hyperlipidemia, Hypertension, Myocardial Infarction (DC), Osteoarthritis (OA) Last Myocardial Infarction Date:: UNKN History of Any Multi-Drug Resistant Organisms: None Reported Past Surgical History: Back Surgery, Heart Catheterization, Heart Catheterization With Stent Additional Past Surgical History / Comment(s): KEFT KNEE INJURY Past Anesthesia/Blood Transfusion Reactions: No Reported Reaction Date of Last Stent Placement:: UNKNOWN Past Psychological History: No Psychological Hx Reported Smoking Status: Former smoker Past Alcohol Use History: Occasional Additional Past Alcohol Use History / Comment(s): QUIT OVER 20 YRS AGO Past Drug Use History: None Reported Medications and Allergies Home Medications Medication Instructions Recorded Confirmed Type Aspirin 81 mg PO DAILY #30 chew 08/13/16 04/22/23 Rx Atorvastatin [Lipitor] 80 mg PO HS #30 tab 08/13/16 04/22/23 Rx Metoprolol Tartrate [Lopressor] 25 mg PO BID #60 tab 08/13/16 04/22/23 Rx Nitroglycerin Sl Tabs [Nitrostat] 0.4 mg SUBLINGUAL Q5M PRN #25 tab 08/13/16 04/22/23 Rx Ezetimibe [Zetia] 10 mg PO HS 05/22/18 04/22/23 History Chlorhexidine Gluconate [Peridex] 15 ml PO BID 04/17/23 04/22/23 History Allergies Allergy/AdvReac Type Severity Reaction Status Date / Time EKG PATCHES Allergy BLISTERS Uncoded 04/22/23 11:08 Surgical - Exam Vital Signs Temp Pulse Resp BP Pulse Ox 97.3 F L 61 16 143/70 96 04/22/23 11:12 04/22/23 11:12 04/22/23 11:12 04/22/23 11:12 04/22/23 11:12 Physical exam: General: Well-developed, well-nourished HEENT: Normocephalic, sclerae nonicteric Abdomen: Nontender, nondistended Extremities: No edema Neuro: Alert and oriented Assessment and Plan (1) Rectal bleeding Narrative/Plan: Will proceed with colonoscopy with possible hemorrhoidal banding at this time. Current Visit: Yes Status: Acute Code(s): K62.5 - HEMORRHAGE OF ANUS AND RECTUM SNOMED Code(s): 09627652
--- NOTE | 2023-04-22 12:04 | P.PCN ---
Date of Procedure: 04/22/23 Procedure(s) Performed: PREOPERATIVE DIAGNOSIS: Rectal bleeding POSTOPERATIVE DIAGNOSIS: External hemorrhoid PROCEDURE: Colonoscopy ANESTHESIA: MAC SURGEON: Jesús Sibley M.D. SPECIMENS: None ENDOSCOPIC PROCEDURE: The patient was placed on the endoscopy table in the left decubitus position. The Olympus colonoscope was inserted into the anus and passed under direct visualization to the base of the cecum. The appendiceal orifice was visualized. From that point the scope was slowly withdrawn inspect ing all surfaces carefully. There were no neoplastic inflammatory or polypoid lesions throughout the cecum, ascending, transverse, descending, sigmoid and rectum. There was no visible diverticulosis noted. Digital rectal examination revealed prominent internal/external hemorrhoids complex right lateral position, skin tag anteriorly. The patient was taken to the recovery room in stable condition per anesthesia guidelines. RECOMMENDATIONS: Resume diet. Will discuss operative hemorrhoidectomy with the patient
[2023-04-22 12:49] VITALS: BP 126/75; PULSE 66
== END 2023-04-22 12:50 | disposition home or self-care (01) ==
LOC: ORWHC2ENDO 10:50
PROVIDERS: ATTEND Surgery
DX: K62.5 Hemorrhage of anus and rectum (principal); K64.4 Residual hemorrhoidal skin tags; I10 Essential (primary) hypertension; E78.5 Hyperlipidemia, unspecified; I25.2 Old myocardial infarction; F10.90 Alcohol use, unspecified, uncomplicated; M19.90 Unspecified osteoarthritis, unspecified site; Z98.890 Other specified postprocedural states; Z87.891 Personal history of nicotine dependence; Z79.899 Other long term (current) drug therapy; Z79.82 Long term (current) use of aspirin
CPT/HCPCS: 45378; J2704